=== PATIENT | male | born 1975 | race Caucasian/White ===

== ENCOUNTER 2023-02-22 14:00 | Outpatient (CLI) | payer OTHER | END 2023-02-22 14:01 | disposition home or self-care (01) | LOC: BICRAD 14:00 | PROVIDERS: ATTEND Nurse Practitioner Family | DX: S49.92XD Unspecified injury of left shoulder and upper arm, subsequent encounter (principal); M61.422 Other calcification of muscle, left upper arm ==

== ENCOUNTER 2023-03-29 13:51 | Outpatient (CLI) | payer OTHER | END 2023-03-29 13:52 | disposition home or self-care (01) | LOC: MRI 13:51 | PROVIDERS: ATTEND Nurse Practitioner Family | DX: S49.92XD Unspecified injury of left shoulder and upper arm, subsequent encounter (principal); S46.812A Strain of other muscles, fascia and tendons at shoulder and upper arm level, left arm, initial encounter; S43.432A Superior glenoid labrum lesion of left shoulder, initial encounter; M75.102 Unspecified rotator cuff tear or rupture of left shoulder, not specified as traumatic; M67.814 Other specified disorders of tendon, left shoulder ==